=== PATIENT | female | born 1990 | race Caucasian/White ===

== ENCOUNTER 2018-01-01 09:11 | Outpatient (CLI) | payer OTHER ==
[2018-01-01] MEDS ORDERED: Gadobenate Dimeglumine 529 MG/1 ML (20ML VIAL) ONE (13:51)
== END 2018-01-01 09:12 | disposition home or self-care (01) ==
LOC: BICMRI 09:11
PROVIDERS: ATTEND Specialist
DX: G51.0 Bell's palsy (principal)
CPT/HCPCS: 70553; A9579